=== PATIENT | male | born 1980 | race Hispanic/Latino ===

== ENCOUNTER 2023-02-10 15:51 | Emergency (ER) | payer OTHER, SELFPAY | END 2023-02-10 16:42 | disposition home or self-care (01) | LOC: MADERS 15:51 | DX: G56.22 Lesion of ulnar nerve, left upper limb (principal); R01.1 Cardiac murmur, unspecified; E78.00 Pure hypercholesterolemia, unspecified; I10 Essential (primary) hypertension; Z79.899 Other long term (current) drug therapy | CPT/HCPCS: 99283 ==